=== PATIENT | male | born 1970 | race Caucasian/White ===

== ENCOUNTER 2021-01-10 05:35 | Day surgery (SDC) | payer BC ==
--- NOTE | 2020-12-30 16:41 | NUR ---
DOS: 01-10-21 STAIRS: 4 STEPS INTO THE RV AND 3 STEPS TO THE BATHROOMA ND BEDROOM SHOWER: IS A WALK IN TOILET: IT IS A REAL HOME TOILET, BUT NOT TO HIGH. TALKED ABOUT A TOILET RAISER AND RAILING TO HELP HIM GET UP AND DOWN. [facility]FW: DOES NOT HAVE CRUTCHES: HAS AND SAID HE WILL USE THEM TO APPOINTMENT AND PHYSICAL THERAPY HIS OR FAMILY WILL GET HIM THERE. PROVIDED PT WITH [facility] [employer] LOAN CLOSET HANDOUT.
[~2021-01-10] VITALS: Ht 193 cm; Wt 148.0 kg
[~2021-01-10 05:35] MED LIST: ADVIL200 M1 PO; IRON18 MG PO; OSTERA TABLET1 EACH PO; VIT C-ROSE HIP500 MG PO; ZESTRIL10 MG PO
[2021-01-10] MEDS ORDERED: BENADRYL ALLERG25 MG PO (05:58)
[2021-01-10] MEDS ORDERED: XARELTO10 MG PO (09:22)
[2021-01-10] MEDS ORDERED: OXYCODONE HCL5 MG PO (09:23)
[2021-01-10] MEDS ORDERED: CELECOXIB200 MG PO (09:23)
[2021-01-10] MEDS ORDERED: GABAPENTIN600 MG PO (09:23)
[2021-01-10] MEDS ORDERED: ASPIRIN EC325 MG PO (09:23)
--- NOTE | 2021-01-10 10:51 | NUR ---
PATIENT BACK TO ROOM FROM PACU, AWAKE ON AND OFF. DRINKING SIPS OF WATER. RATES PAIN IN KNEE 2/10 AND STATES "IT JUST FEELS VERY WEIRD NOW" RESCUE BLOCK PROVIDED BY [facility] [facility] APPEARS TO BE EFFECTIVE. DRESSING TO LEFT KNEE C/D/I, STRONG PEDAL PULSE, WITH ICE MACHINE IN PLACE. CALL LIGHT WITHIN REACH. NO OTHER NEEDS AT THIS TIME. URINAL PLACED AT BEDSIDE FOR USE WHEN READY.
--- NOTE | 2021-01-10 10:58 | NUR ---
01/10/21 1058 Magda Ayoub 0927 PT ARRIVED IN PACU MOVING AROUND IN BED AND C/O L KNEE PAIN. ANESTHESIA AT BEDSIDE GIVING FENTANYL 100MCG IVP. 0945 CRYO CUFF PLACED ON L KNEE. 0951 C/O L KNEE PAIN 7-8/10. FENTANYL 50MCG GIVEN IVP. 1001 PAIN DOWN TO 5/10. FENTANYL 50MCG GIVEN IVP. 1015 PAIN 4/10 AND TOLERABLE PER PT. ANESTHESIA AT BEDSIDE TALKING WITH PT ABOUT RESCUE BLOCKS FOR PAIN CONTROL. PT AGREEABLE. [id number] [facility] [facility] AT BEDSIDE DOING BLOCKS. PT TOLERATED WELL WITH NO C/O'S. 1050 PAIN DOWN TO 2-3/10. TO DS. REPORT GIVEN TO RN. AT BEDSIDE.
--- NOTE | 2021-01-10 11:01 | NUR ---
PT GONE TO SURGERY, CONNECTED WITH WAITING IN RM. SHE SEEMED VERY CONTENT-WORKING ON COMPUTER. DID REQUEST SOME WATER, ALL OTHER QUESTONS ASKED ANSWERED. GAVE BLESSING, WILL FOLLOW NEEDED
--- NOTE | 2021-01-10 11:15 | NUR ---
PATIENT SITTING UP ON EDGE OF BED, APPEARS RESTLESS. STATES " I REALLY WANT TO PEE AND NOT HAVING ANY TROUBLE" PATIENT REPORTS THE URGE IS THERE, SPINAL HAS RESOLVED. PATIENT TOLERATED SITTING UP FOR 5 MINUTES, THEN REPORTED WAVES OF NAUSEA AND NEEDED TO LAY BACK. DISCUSSED PLAN OF CARE AND POSSIBLE NEED TO STRAIGHT CATH AFTER BLADDER SCAN RESULTS. PATIENT VERBALIZED UNDERSTANDING. CALL LIGHT WITHIN REACH.
--- NOTE | 2021-01-10 12:19 | NUR ---
PATIENT BLADDER SCANNED FOR >750 ML OF URINE. CALLED AND VERIFIED ORDER FOR GARCIA PLACEMENT IF BLADDER SCAN >[address] TARIQ VERBALIZED OKAY TO STRAIGHT CATH PATIENT AND THEN CONTINUE VOIDING TRIAL. PROVIDED STRAIGHT CATH AND COLLECTED 800 ML OF URINE. PATIENT REPORTED RELIEF. PROVIDED SNACKS AND BEVERAGES, ORDERED PATIENT LUNCH. DRESSING TO L KNEE C/D/I WITH ICE IN PLACE. STRONG PEDAL PULSE, WARM TOES.
--- NOTE | 2021-01-10 13:51 | NUR ---
PATIENT LEFT PACU TO WORK WITH PHYSICAL THERAPY ON THE MEDICAL-SURGICAL FLOOR. PAIN WELL CONTROLLED AND APPEARS TO BE MOVING WELL WITH WALKER. DRESSING C/D/I ATE 100% OF LUNCH.
--- NOTE | 2021-01-10 14:11 | NUR ---
PATENT BACK TO ROOM FROM PHYSICAL THERAPY. STATES " I FEEL DIZZY, MY HEAD IS SPINNING" PATIENT LAID BACK INTO BED. REPORTS NO URGE TO URINATE. PHYSICAL THERAPY VERBALIZED PATIENT OKAY TO GO ON THEIR SIDE OF CARE IF PATIENT IS ABLE TO AMBULATE TO THE BATHROOM WITH FEELINGS OF DIZZINESS OR LIGHT HEADNESS. DRESSING TO LEFT KNEE, C/D/I. PROVIDED PATIENT WITH WARM BLANKET. CALL LIGHT WITHIN REACH. PLAN TO LET PATIENT REST FOR HALF HOUR, THEN BLADDER SCAN AND THEN EVALUATE IF PATIENT WILL BE ABLE TO TOLERATE AMBULATING INTO THE BATHROOM.
--- NOTE | 2021-01-10 17:00 | NUR ---
PROVIDED PATIENT AND WITH DISCHARGE INSTRUCTION ANSWERED QUESTIONS AND CONCERNS. DR. TARIQ VERBALIZED PATIENT START TAKING XARELTO AND CELEBREX WHEN AUTHORAZTION PROCESSES. PATIENT AWARE AND HAS CLEAR INSTRUCTION. PROVIDED WHEELCHAIR RIDE OUT TO CAR, PATIENT TRANSFERED INTO POV SAFELY.
--- NOTE | 2021-01-12 07:11 | OR ---
[facility] [address] [place], [place] [address] Signed DATE OF OPERATION: 01/10/2021 SURGEON: Brian Khan MD PREOPERATIVE DIAGNOSIS: Severe degenerative joint disease, left knee. POSTOPERATIVE DIAGNOSIS: Severe degenerative joint disease, left knee. PROCEDURE PERFORMED: Left total knee arthroplasty. BOOKING CLERK: Lali Garcia PA-C. ANESTHESIA: Spinal. BLOOD LOSS: 175 mL. TOURNIQUET TIME: Zero. IMPLANTS: Leah Triathlon size 8, femur size 7 tibia, 10 mm insert and a 38 mm patella. BRIEF HISTORY: Miriam is a 50-year-old gentleman, who has had pain and instability in his knee for years. He underwent an ACL reconstruction many years ago, developed subsequent posttraumatic osteoarthritis. Nonoperative treatment failed to control his symptoms. He wished to proceed with operative intervention. Risks, benefits, and alternatives were discussed at length. He understood and wished to proceed. DESCRIPTION OF PROCEDURE: Once consent was obtained, he was taken to the operating room after adequate anesthesia. He was placed on operating room table. All downside pressure points were well padded. Spinal was placed with a fair amount of nausea before and after the spinal attempt. He did tolerate it well. The leg was then prepped and draped in a standard sterile Electronically Signed By: BRIAN KHAN MD 01/12/21 0711 PATIENT NAME: MIRIAM SIDDIQI OPERATIVE REPORT DATE OF : 70 REPORT #: [id number] PHYSICIAN: BRIAN KHAN MD PCP: KIMBERLY MANCILLA MD REPORT IS CONFIDENTIAL AND NOT TO BE RELEASED WITHOUT AUTHORIZATION [facility] [address] [place], [place] [address] Signed fashion. The knee was approached through standard anterior midline incision, carried through skin and subcutaneous tissue. Initially, we started with a mid vastus approach; however, his knee was quite tight with large osteophytes and the approach was extended into the quad tendon about a cm and half. This allowed good visualization. The osteophytes were removed and the anterior horns of menisci were transected. The MCL was elevated with a sleeve around the posteromedial corner. The infrapatellar fat pad was excised and the knee was flexed. The checkpoints were placed in the medial femoral condyle and the tibia. The femoral array was then placed in the medial femoral condyle with two Shantz pins. The tibial ray was placed percutaneously one handsbreadth below the tibial tuberosity. The leg was then registered with the computer as was the fine anatomic points of the knee. The adjustments were then made based on the ligamentous tightness. The plan was adjusted accordingly. Once this was accomplished, the Cong was brought in and the straight cuts were made with care taken to protect the patellar tendon and MCL. The saw was changed to the angle blade and the 2 angle cuts were made. All bone fragments were removed as were any remaining osteophytes. The osteophytes of the back of the tibia and femur were removed. The trials were positioned. Knee was stable throughout. The patella was cut sized and drilled for a 38 mm patella. The distal femoral drill holes were made in the proximal tibia and it was finished using the keel punch. He had quite solid bone, so we elected to proceed with a non-cemented implant. The implants were obtained and the tibia was impacted into position until it was cut. The polyethylene was snapped into position and the femur was impacted. The knee was extended and nicely loaded. The patella was clamped into position and the knee was taken through range of motion and found to be very stable 0-140 degrees of flexion. The On-Q pain pump was then placed percutaneously into the adductor canal from the suprapatellar pouch. The arthrotomy was then closed after irrigating the knee with 4 L of normal saline. The knee was closed using #2 Stratafix, the subcutaneous tissue with #0 Stratafix, and the skin with 3-0 Monocryl. Steri-Strips were then applied and the wound was dressed with Acticoat 7 dressing. He was taken to the recovery room in satisfactory condition. All sponge, needle, and instrument counts were correct. Brian Khan MD BA/MODL /[id number] Electronically Signed By: BRIAN KHAN MD 01/12/21 0711 PATIENT NAME: MIRIAM SIDDIQI OPERATIVE REPORT DATE OF : 70 REPORT #: [id number] PHYSICIAN: BRIAN KHAN MD PCP: KIMBERLY MANCILLA MD REPORT IS CONFIDENTIAL AND NOT TO BE RELEASED WITHOUT AUTHORIZATION [address] [address] Signed Copies: ~ Electronically Signed By: BRIAN KHAN MD 01/12/21 0711 PATIENT NAME: MIRIAM SIDDIQI OPERATIVE REPORT DATE OF : 70 REPORT #: [id number] PHYSICIAN: BRIAN KHAN MD PCP: KIMBERLY MANCILLA MD REPORT IS CONFIDENTIAL AND NOT TO BE RELEASED WITHOUT AUTHORIZATION
== END 2021-01-10 17:20 | disposition home or self-care (01) ==
LOC: DS 05:35
PROVIDERS: ATTEND Specialist
PROC: 0SRD069 Replacement of Left Knee Joint with Oxidized Zirconium on Polyethylene Synthetic Substitute, Cemented, Open Approach (ICD-10-PCS; principal; 2021-01-10 06:45)
DX: M17.12 Unilateral primary osteoarthritis, left knee (principal)
CPT/HCPCS: 01402; 64447; 64450; 76942; 97161; C1713; C1776; J0131; J0690; J1100; J1885; J2001; J2250; J2405; J2704; J2795; J3010; J7121

== ENCOUNTER 2021-07-20 07:05 | Day surgery (SDC) | payer BC ==
[~2021-07-20] VITALS: Ht 193 cm; Wt 143.0 kg
--- NOTE | ~2021-07-20 | OR ---
[facility] [address] [place], [place] [address] Draft DATE OF OPERATION: 07/20/2021 SURGEON: Coleman Michelle DPM PREOPERATIVE DIAGNOSIS: Osteophyte, first metatarsal-cuneiform joint, bilateral foot. POSTOPERATIVE DIAGNOSIS: Osteophyte, first metatarsal-cuneiform joint, bilateral foot. PROCEDURE: Excision of osteophyte, dorsal first metatarsal-cuneiform joint bilateral. ANESTHESIA: IV general with local block to bilateral foot. MANUFACTURING ENGINEER: Julio C Cole C.R.N.A. SPECIMEN TO PATHOLOGY: Soft tissue of hypertrophic joint capsule, right first metatarsal-cuneiform joint. DESCRIPTION OF PROCEDURE #1: The patient was brought to the operating room and placed on the table in the supine position. Anesthesia Department administered IV sedation, after which a local block was given to each foot using a total of 6 mL of 1:1 mixture, 2% lidocaine plain, and 0.5% ropivacaine plain to each foot. The legs and feet were then prepped and draped in the usual sterile manner and an Esmarch was used for hemostasis. Attention was initially directed to the dorsal/medial left mid foot, where a linear longitudinal incision was made medial to the bony prominence at the dorsal first metatarsal-cuneiform joint. The incision was initially 3-4 cm in length, full thickness through the dermis, then deepened through subcutaneous tissue using careful dissection and cautery as necessary for hemostasis, taking care to retract nerve and vascular tissues as identified. The incision was then made through the joint capsule with a longitudinal incision then reflecting soft tissues medial and lateral to expose the dorsal aspect of the first metatarsal-cuneiform joint. Bony prominence at this site was then noted and using hand instrumentation, the bony prominence was reduced and then PATIENT NAME: MIRIAM SIDDIQI OPERATIVE REPORT DATE OF : 70 REPORT #: [id number] PHYSICIAN: COLEMAN MICHELLE DPM PCP: KIMBERLY MANCILLA MD REPORT IS CONFIDENTIAL AND NOT TO BE RELEASED WITHOUT AUTHORIZATION [facility] [address] [place], [place] [address] Draft smoothed with a hand rasp. The surgical site was then irrigated with copious amounts of normal saline, bone wax then used to the area of raw bone and deep soft tissues closed using 4-0 Vicryl. Subcutaneous tissue closed using 4-0 Vicryl and skin closed using 5-0 nylon monofilament suture. Intraoperative complications were none. Procedure #2: Excision of osteophyte dorsal right first metatarsal-cuneiform joint. This procedure was performed in an identical manner to the left foot, except that the bony prominence was slightly larger and hypertrophic joint capsule noted, which was excised and sent for pathology. COMPLICATIONS: None. Dressings applied bilateral foot consisting of Adaptic, Betadine-soaked gauze, dry gauze, lexicon, and Coban for mild compression. The left foot was performed 1st, the Esmarch was then removed from the left foot and applied to the right foot for hemostasis. The patient tolerated the procedures and the anesthesia well and left the OR with vital signs stable and vascular status intact bilateral foot as evidenced by hyperemia with removal of the Esmarch. MOLLY Linda/NBA /[id number] Copies: ~ PATIENT NAME: АННАFELIPEMIRIAM OPERATIVE REPORT DATE OF : 70 REPORT #: [id number] PHYSICIAN: COLEMAN MICHELLE DPM PCP: KIMBERLY MANCILLA MD REPORT IS CONFIDENTIAL AND NOT TO BE RELEASED WITHOUT AUTHORIZATION
[~2021-07-20 07:05] MED LIST changes: +ASPIRIN EC325 MG PO; +BENADRYL ALLERG25 MG PO; +CELECOXIB200 MG PO; +GABAPENTIN600 MG PO; +OXYCODONE HCL5 MG PO; +XARELTO10 MG PO; +ZINC50 MG PO
--- NOTE | 2021-07-20 11:42 | NUR ---
07/20/21 1142 Magda Ayoub 1113 PT ARRIVED IN PACU SLEEPY. CHIN LIFT HELD. 1115 PT REACTIVE AND MOVING BILAT LEGS IN BED. [id number] XRAY TO BILAT FEET DONE WITH 3 PERSON ASSIST. 1140 PT REPOSITIONED TO L SIDE FOR COMFORT. NO C/O'S.
--- NOTE | 2021-07-20 12:05 | NUR ---
1153: PT RETURNS TO UNIT VIA STRETCHER FROM PACU. DROWSY ON ARRIVAL BUT WAKES TO VERBAL STIMULATION. VSS, RESP EVEN AND UNLABORED ON RA. DENIES PAIN AND NAUSEA AT THIS TIME. ICE WATER AND CRACKERS PROVIDED. BILAT FOOT INCISIONS DRESSED WITH ADAPTIC, FLEXICON AND COBAN. C/D/I, [facility] WNL. ICE TO BILAT FEET. PT WITHOUT NEEDS AND REQUESTS AT THIS TIME. CALL LIGHT WITHIN REACH
--- NOTE | 2021-07-20 19:43 | EKG ---
[facility] [address] [facility] [place], [place] [address] Signed Normal sinus rhythm Normal ECG No previous ECGs available Confirmed by JAYE KENDALL MD ([id number]) on 07/20/2021 7:43:07 PM Electronically Signed By: JAYE KENDALL MD 07/20/211942 PATIENT NAME: MIRIAM SIDDIQI Electrocardiogram DATE OF : 70 PHYSICIAN: JAYE KENDALL MD REPORT #: [id number] REPORT IS CONFIDENTIAL AND NOT TO BE RELEASED WITHOUT AUTHORIZATION
== END 2021-07-20 13:25 | disposition home or self-care (01) ==
LOC: DS 07:05 → OPS 07:05
PROVIDERS: ATTEND Podiatrist Foot Surgery
PROC: 0QBN0ZZ Excision of Right Metatarsal, Open Approach (ICD-10-PCS; 2021-07-20)
PROC: 0QBP0ZZ Excision of Left Metatarsal, Open Approach (ICD-10-PCS; principal; 2021-07-20 08:15)
DX: M25.774 Osteophyte, right foot (principal); M25.775 Osteophyte, left foot; Z20.822 Contact with and (suspected) exposure to COVID-19; M20.42 Other hammer toe(s) (acquired), left foot; M20.41 Other hammer toe(s) (acquired), right foot
CPT/HCPCS: 73630; 93005; 93010; J1100; J1200; J1790; J1885; J2250; J2405; J2550; J2704; J2765; J3010; J7121

== ENCOUNTER 2023-03-16 06:50 | Day surgery (SDC) | payer BC ==
[2023-03-13 09:11] VITALS: BP 130/70
[~2023-03-16] VITALS: Ht 193 cm; Wt 143.2 kg
[~2023-03-16 06:50] MED LIST changes: +LOMOTIL TABLET1 EACH PO; +ONDANSETRON ODT8 MG PO; +PROMETHAZINE HC25 M1 PO; +TYLENOL EXTRA500 MG PO
[2023-03-16 07:01] VITALS: BP 141/79
--- NOTE | 2023-03-16 09:13 | NUR ---
03/16/23 0913 Shari Khan 0908 PT TO PACU SLEEPING O2 ON 6L VIA MASK, FOGGING NOTED IN MASK.
[2023-03-16 09:34] VITALS: BP 152/98
--- NOTE | 2023-03-16 10:22 | NUR ---
PT ACCOMPANIED BY . BOTH IN GOOD SPIRITS. GAVE PAGER 11. CONSENTED TO PRAYER. PRAYED FOR SUCCESSFUL PROCEDURE AND QUICK RECOVERY.
--- NOTE | 2023-03-16 11:01 | OR ---
[facility] [address] [place], [place] [address] Signed DATE OF OPERATION: 03/16/2023 SURGEON: Alex Sanches MD PREOPERATIVE DIAGNOSIS: Screening. POSTOPERATIVE DIAGNOSES: 1. Minimal sigmoid diverticulosis. 2. Minimal to moderate internal hemorrhoids. PROCEDURE: Colonoscopy without biopsy. ESTIMATED BLOOD LOSS: None. INDICATIONS: Miriam is a 52-year-old gentleman with a body mass index of 39. He is a large man at 6 foot 4 inches and 321 pounds. He has been asked to see me for a colonoscopy. He has no lower GI complaints. There is no family history of colon cancer or polyps. He has been through upper endoscopy in the past. Consequently, he is familiar with this process. I gave him our brochure on colonoscopy. He understands the nature of the test. There is risk including, but not limited to gas bloating, crampy abdominal pain, bleeding, perforation requiring surgery, and missed diagnosis. We also reviewed the written instructions for the bowel prep line by line. Also, he is a large man. He has rather significant postoperative nausea and vomiting and very slow to wake up. He also has a very full face and full heath. He also has trouble with several disks in his neck. Consequently, we asked that we have monitored anesthesia care with propofol infusion. In that regard, he needed preoperative blood work and an EKG. He had expressed understanding and wished to proceed. PROCEDURE NOTE: Miriam is deathly allergic to the penicillins. He did not want to even attempt cephalosporins due to his joint replacement. Consequently, he received clindamycin without any undue effects. After this, he was taken into our endoscopy suite and placed in the left lateral decubitus position. He was given monitored anesthesia care with propofol infusion per our nurse geothermal powerplant supervisor. A digital rectal exam was performed. He is a large man and I can barely touch the bottom of his prostate gland. It is a little indurated consistent with his age. There were no external hemorrhoids. He had good Electronically Signed By: ALEX SANCHES MD 03/16/23 1101 PATIENT NAME: MIRIAM SIDDIQI OPERATIVE REPORT DATE OF : 70 REPORT #: [id number] PHYSICIAN: ALEX SANCHES MD PCP: EDEL TAPIA MD REPORT IS CONFIDENTIAL AND NOT TO BE RELEASED WITHOUT AUTHORIZATION [facility] [address] [place] [id number] Signed sphincter tone. There were no masses. After this, the adult colonoscope was inserted and passed under direct visualization of the camera up into the cecum itself without difficulty. His prep was quite good. We could easily see the appendiceal orifice and the ileocecal valve. The scope was then slowly withdrawn. We took multiple pictures throughout for photodocumentation. He does have some diverticula in the sigmoid colon. They were small to moderate in size, few in number and scattered about. The anus showed minimal to moderate internal hemorrhoids on retroflexion of the scope. After this, the gas was suctioned out and colonoscope removed. Miriam tolerated the procedure quite well. RECOMMENDATIONS: Miriam can follow up in 10 years for repeat colonoscopy. Alex Sanches MD ALB/MODL /[id number] cc: MD Edel Reese MD Copies: ALEX SANCHES MD ~ Electronically Signed By: ALEX SANCHES MD 03/16/23 1101 PATIENT NAME: MIRIAM SIDDIQI OPERATIVE REPORT DATE OF : 70 REPORT #: [id number] PHYSICIAN: ALEX SANCHES MD PCP: EDEL TAPIA MD REPORT IS CONFIDENTIAL AND NOT TO BE RELEASED WITHOUT AUTHORIZATION
== END 2023-03-16 09:45 | disposition home or self-care (01) ==
LOC: OPS 06:50 → DS 06:50 → OPS 08:15 → DS 08:15 → OPS 09:45
PROVIDERS: ATTEND Colon & Rectal Surgery
PROC: 0DJD8ZZ Inspection of Lower Intestinal Tract, Via Natural or Artificial Opening Endoscopic (ICD-10-PCS; principal; 2023-03-16 08:15)
DX: Z12.11 Encounter for screening for malignant neoplasm of colon (principal); I10 Essential (primary) hypertension; E66.9 Obesity, unspecified; M54.12 Radiculopathy, cervical region; G89.29 Other chronic pain; R42 Dizziness and giddiness; Z68.39 Body mass index [BMI] 39.0-39.9, adult; Z88.0 Allergy status to penicillin; Z88.5 Allergy status to narcotic agent; K57.30 Diverticulosis of large intestine without perforation or abscess without bleeding; K64.8 Other hemorrhoids
CPT/HCPCS: J2001; J2704; J3490; J7121